=== PATIENT | male | born 1975 | race Caucasian/White ===

== ENCOUNTER → 2017-06-07 | Outpatient (CLI) | payer BC ==
--- NOTE | 2017-06-08 07:24 | XR ---
EXAMINATION TYPE: XR lumbar spine 2 or 3V DATE OF EXAM: 06/07/2017 CLINICAL HISTORY: pain TECHNIQUE: Three views of the lumbar spine are submitted. COMPARISON: 01/14/2012 FINDINGS: There are 5 lumbar type vertebral bodies identified. The lumbar spine shows satisfactory alignment w ithout evidence of acute fracture or dislocation. Vertebral body heights are within normal limits. Disc spaces are within normal limits. Mild spondylosis at the L5 level. There is mild curvature conv ex to the right. The overlying soft tissue appears unremarkable. IMPRESSION: No acute fracture or dislocation is seen in the lumbar spine. ICD 10 NO FRACTURE, INITIAL EVALUATION
== END | disposition home or self-care (01) ==
LOC: RADXRMAIN 17:21
PROVIDERS: ATTEND Internal Medicine
DX: M47.896 Other spondylosis, lumbar region (principal); Z79.1 Long term (current) use of non-steroidal anti-inflammatories (NSAID)
CPT/HCPCS: 72100

== ENCOUNTER 2021-02-01 15:07 | Emergency (ER) | payer BC ==
[2021-02-01 16:03] VITALS: BP 125/79; PULSE 65; RESP 18; TEMP 97.9
--- NOTE | 2021-02-01 16:17 | ED ---
Recheck HPI - General Chief Complaint: Recheck/Abnormal Lab/Rx Stated Complaint: COVID Test Time Seen by Provider: 02/01/21 16:05 Source: patient Mode of arrival: ambulatory Limitations: no limitations - History of Present Illness Initial Comments: 46-year-old male presents to the emergency room with a chief complaint of cold would testing. Patient reports unmasked exposure to unknown Covid patient about 3 days ago. He denies any symptoms. Patient is only requesting testing. He denies any other complaints. - Related Data Home Medications Medication Instructions Recorded Confirmed Hydrocodone/Acetaminophen [Vicodin 1 each PO Q6HR PRN 04/14/14 04/14/14 Es 7.5-300 mg Tablet] Previous Rx's Medication Instructions Recorded Dicyclomine [Bentyl] 20 mg PO QID #24 tablet 04/14/14 Famotidine [Pepcid] 20 mg PO BID #30 tablet 04/14/14 Ondansetron Odt [Zofran Odt] 4 mg PO Q6HR PRN #20 tab 04/14/14 Allergies Allergy/AdvReac Type Severity Reaction Status Date / Time No Known Allergies Allergy Verified 02/01/21 16:03 Review of Systems ROS Statement: Those systems with pertinent positive or pertinent negative responses have been documented in the HPI. ROS Other: All systems not noted in ROS Statement are negative. Past Medical History Past Medical History: No Reported History Additional Past Medical History / Comment(s): back pain History of Any Multi-Drug Resistant Organisms: None Reported Past Surgical History: No Surgical Hx Reported Additional Past Surgical History / Comment(s): hemorrhoid Past Psychological History: No Psychological Hx Reported Smoking Status: Current every day smoker Past Alcohol Use History: None Reported Past Drug Use History: None Reported General Exam - General Exam Comments Initial Comments: General: [Well-developed well-nourished distress] HEENT: [Normocephalic/atraumatic, PERLL, pharynx erythema, swallowing well, EAC no erythema, no exudates, TM clear, no cervical lymph nodes] Neck: [Supple, nontender, trachea midline] Chest/Lungs: [Normal respirations, no signs of respiratory distress clear to auscultation bilaterally no wheezes, rales, rhonchi] Cardiac: [Regular rate and rhythm, normal S1-S2, no murmurs rubs or gallops ] Abdomen/GI: [Soft nontender, bowel sounds equal or quadrant x4, no guarding, no rebound no CVA tenderness] : [Deferred] Musculoskeletal: [Nontender, full range of motion, no edema, strength equal bilaterally] Skin: [Warmth, no rashes or lesions, no cyanosis or diaphoresis] Neurologic: [AAO x 3, CN 2-12 intact, ] Psychiatric: [Mood and affect normal, judgment normal] Limitations: no limitations Course Vital Signs 02/01/21 15:59 Temperature 97.9 F Pulse Rate 65 Respiratory 18 Rate Blood Pressure 125/79 O2 Sat by Pulse 100 Oximetry Medical Decision Making - Medical Decision Making 46-year-old male presents to emergency department with the chief complaint of Covid testing. Patient is requesting a test. PCR test pending. Patient will be notified with the results. Case discussed with Disposition Clinical Impression: Exposure to COVID-19 virus Disposition: HOME SELF-CARE Condition: Stable Instructions (If sedation given, give patient instructions): Coronavirus Disease 2019 (COVID-19) Additional Instructions: Please return to the Emergency Department if symptoms worsen or any other concerns. Is patient prescribed a controlled substance at d/c from ED?: No Referrals: Regina Frank MD [Primary Care Provider] - 1-2 days Time of Disposition: 16:16
== END 2021-02-01 16:30 | disposition home or self-care (01) ==
LOC: EC 15:07
DX: Z20.822 Contact with and (suspected) exposure to COVID-19 (principal); M54.9 Dorsalgia, unspecified; F17.200 Nicotine dependence, unspecified, uncomplicated
CPT/HCPCS: 99283; U0003; U0005

== ENCOUNTER 2021-10-27 13:39 | Emergency (ER) | payer BC ==
[2021-10-27 14:19] VITALS: BP 104/73; PULSE 67; RESP 16; TEMP 98.1
--- NOTE | 2021-10-27 15:23 | ED ---
General Adult HPI - General Chief complaint: Recheck/Abnormal Lab/Rx Stated complaint: COVID Test Time Seen by Provider: 10/27/21 14:35 Source: patient, RN notes reviewed Mode of arrival: ambulatory Limitations: no limitations - History of Present Illness Initial comments: 46-year-old male presented department with chief complaint of COVID-19 exposure. Patient states that his daughters positive for COVID-19. Patient states he is vaccinated he has no symptoms currently. Patient denies any fevers chills cough congestion bodyaches nausea vomiting diarrhea constipation. - Related Data Home Medications Medication Instructions Recorded Confirmed Hydrocodone/Acetaminophen [Vicodin 1 each PO Q6HR PRN 04/14/14 04/14/14 Es 7.5-300 mg Tablet] Previous Rx's Medication Instructions Recorded Dicyclomine [Bentyl] 20 mg PO QID #24 tablet 04/14/14 Famotidine [Pepcid] 20 mg PO BID #30 tablet 04/14/14 Ondansetron Odt [Zofran Odt] 4 mg PO Q6HR PRN #20 tab 04/14/14 Allergies Allergy/AdvReac Type Severity Reaction Status Date / Time No Known Allergies Allergy Verified 10/27/21 14:18 Review of Systems ROS Statement: Those systems with pertinent positive or pertinent negative responses have been documented in the HPI. ROS Other: All systems not noted in ROS Statement are negative. Past Medical History Past Medical History: No Reported History Additional Past Medical History / Comment(s): back pain History of Any Multi-Drug Resistant Organisms: None Reported Past Surgical History: No Surgical Hx Reported Additional Past Surgical History / Comment(s): hemorrhoid Past Psychological History: No Psychological Hx Reported Smoking Status: Current every day smoker Past Alcohol Use History: None Reported Past Drug Use History: None Reported General Exam Limitations: no limitations General appearance: alert, in no apparent distress Head exam: Present: atraumatic, normocephalic, normal inspection Eye exam: Present: normal appearance, PERRL, EOMI. Absent: scleral icterus, conjunctival injection, periorbital swelling ENT exam: Present: normal exam, mucous membranes moist Neck exam: Present: normal inspection, full ROM. Absent: tenderness, meningismus, lymphadenopathy Respiratory exam: Present: normal lung sounds bilaterally. Absent: respiratory distress, wheezes, rales, rhonchi, stridor Cardiovascular Exam: Present: regular rate, normal rhythm, normal heart sounds. Absent: systolic murmur, diastolic murmur, rubs, gallop, clicks Neurological exam: Present: alert, oriented X3, CN II-XII intact Skin exam: Present: warm, dry, intact, normal color. Absent: rash Course Vital Signs 10/27/21 14:16 Temperature 98.1 F Pulse Rate 67 Respiratory 16 Rate Blood Pressure 104/73 O2 Sat by Pulse 97 Oximetry Medical Decision Making - Medical Decision Making Patient is negative for covid 19 will be discharged in stable condition return parameters were discussed. - Lab Data Lab Results 10/27/21 Range/Units 14:31 Coronavirus (PCR) Not Detected (Not Detectd) Disposition Clinical Impression: Encounter for laboratory testing for COVID-19 virus Disposition: HOME SELF-CARE Condition: Stable Instructions (If sedation given, give patient instructions): Coronavirus Disease 2019 (COVID-19) Additional Instructions: Please return to the Emergency Department if symptoms worsen or any other concerns. Is patient prescribed a controlled substance at d/c from ED?: No Referrals: Regina Frank MD [Primary Care Provider] - 1-2 days Time of Disposition: 15:23
== END 2021-10-27 15:54 | disposition home or self-care (01) ==
LOC: EC 13:39
DX: Z11.52 Encounter for screening for COVID-19 (principal); Z20.822 Contact with and (suspected) exposure to COVID-19; F17.200 Nicotine dependence, unspecified, uncomplicated
CPT/HCPCS: 87635; 99282

== ENCOUNTER 2021-11-13 15:13 | Emergency (ER) | payer BC ==
[2021-11-13 16:03] VITALS: RESP 18
--- NOTE | 2021-11-13 16:51 | ED ---
Recheck HPI - General Chief Complaint: Recheck/Abnormal Lab/Rx Stated Complaint: Head ache, Covid Test Time Seen by Provider: 11/13/21 16:49 Source: patient Mode of arrival: ambulatory Limitations: physical limitation - History of Present Illness Initial Comments: 46-year-old male patient presents to the emergency department today with body aches, fatigue, cough. States family members have tested positive for COVID-19. He states he is having some intermittent chest pain especially with deep breathing. Denies any shortness of breath. Denies any leg pain or swelling. Denies any significant fever or chills. States he has had lack of appetite, but no nausea or vomiting. Has not been taking any medication. States he is otherwise healthy. He did have second Covid vaccine in March. Patient denies any recent rash, abdominal pain, diarrhea, constipation, back pain, numbness, tingling, dizziness, weakness, hematuria, dysuria, urinary urgency, urinary frequency, headache, visual changes, or any other complaints. - Related Data Home Medications Medication Instructions Recorded Confirmed Hydrocodone/Acetaminophen [Vicodin 1 each PO Q6HR PRN 04/14/14 04/14/14 Es 7.5-300 mg Tablet] Previous Rx's Medication Instructions Recorded Dicyclomine [Bentyl] 20 mg PO QID #24 tablet 04/14/14 Famotidine [Pepcid] 20 mg PO BID #30 tablet 04/14/14 Ondansetron Odt [Zofran Odt] 4 mg PO Q6HR PRN #20 tab 04/14/14 Dexamethasone 6 mg PO DAILY #10 tablet 11/13/21 Ibuprofen [Motrin] 600 mg PO Q8HR PRN #30 tab 11/13/21 guaiFENesin-DM 600/30MG [Mucinex 2 each PO Q12HR PRN #20 tab 11/13/21 Dm] Allergies Allergy/AdvReac Type Severity Reaction Status Date / Time No Known Allergies Allergy Verified 11/13/21 16:03 Review of Systems ROS Statement: Those systems with pertinent positive or pertinent negative responses have been documented in the HPI. ROS Other: All systems not noted in ROS Statement are negative. Past Medical History Past Medical History: No Reported History Additional Past Medical History / Comment(s): back pain History of Any Multi-Drug Resistant Organisms: None Reported Past Surgical History: No Surgical Hx Reported Additional Past Surgical History / Comment(s): hemorrhoid Past Psychological History: No Psychological Hx Reported Smoking Status: Current every day smoker Past Alcohol Use History: None Reported Past Drug Use History: None Reported General Exam Limitations: physical limitation General appearance: alert, in no apparent distress, other (This is a well- developed, well-nourished adult male in no acute distress.) ENT exam: Present: normal exam, normal oropharynx, mucous membranes moist Respiratory exam: Present: normal lung sounds bilaterally. Absent: respiratory distress, wheezes, rales, rhonchi, stridor Cardiovascular Exam: Present: regular rate, normal rhythm, normal heart sounds. Absent: systolic murmur, diastolic murmur, rubs, gallop, clicks GI/Abdominal exam: Present: soft, normal bowel sounds. Absent: distended, tenderness, guarding, rebound, rigid Neurological exam: Present: alert, oriented X3, CN II-XII intact Psychiatric exam: Present: normal affect, normal mood Skin exam: Present: warm, dry, intact, normal color. Absent: rash Course Vital Signs 11/13/21 15:59 Temperature 98.4 F Pulse Rate 119 H Respiratory 18 Rate Blood Pressure 117/81 O2 Sat by Pulse 97 Oximetry Medical Decision Making - Medical Decision Making 46-year-old male patient presented for an upper respiratory symptoms body aches and fatigue. Physical examination reveals clear equal lung sounds. He is breathing without difficulties speaking in full sentences. He did test positive for COVID-19. He does report a cough and some chest discomfort with deep breathing we'll start him on dexamethasone and Mucinex. He'll be given ibupr ofen. He is instructed to follow-up with his primary care physician for recheck in 1-2 days. Return parameters were discussed in detail. He verbalizes understanding and agrees with this plan. My attending is Dr. Greene. - Lab Data Lab Results 11/13/21 Range/Units 16:04 Coronavirus (PCR) Detected A (Not Detectd) Disposition Clinical Impression: COVID-19 Disposition: HOME SELF-CARE Condition: Good Instructions (If sedation given, give patient instructions): Coronavirus Disease 2019 (COVID-19) Additional Instructions: Tips to help you feel better: -Maintain adequate fluid intake - especially water. -Rest, you are healing your body will require extra sleep. -Eat even if you do not feel like it - broth, jello, toast are fine if you cannot eat full meals. -Take tylenol and motrin alternating (if you have no allergies or have not been instructed to avoid these medications) to help with body aches and fevers. -Obtain over the counter vitamin C, zinc, and vitamin D3. -Take medications as prescribed. Follow-up with your primary care physician for recheck in 1-2 days. Return for any new, worsening, or concerning symptoms. Prescriptions: Dexamethasone 6 mg PO DAILY #10 tablet Ibuprofen [Motrin] 600 mg PO Q8HR PRN #30 tab PRN Reason: Pain guaiFENesin-DM 600/30MG [Mucinex Dm] 2 each PO Q12HR PRN #20 tab PRN Reason: Cough Is patient prescribed a controlled substance at d/c from ED?: No Referrals: Regina Frank MD [Primary Care Provider] - 1-2 days Time of Disposition: 16:51
[2021-11-13 17:04] VITALS: BP 132/89; PULSE 108; TEMP 97.6
== END 2021-11-13 17:02 | disposition home or self-care (01) ==
LOC: EC 15:13
DX: U07.1 COVID-19 (principal); F17.200 Nicotine dependence, unspecified, uncomplicated
CPT/HCPCS: 87635; 99283